=== PATIENT | female | born 2000 | race Caucasian/White ===

== ENCOUNTER 2019-04-14 17:28 | Emergency (ER) | payer BC ==
[2019-04-14 17:41] VITALS: BP 127/96
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
[2019-04-14] MEDS ORDERED: valACYclovir 500 MG TAB PO ONE (19:17)
[2019-04-14] MEDS ORDERED: AZITHROMYCIN 250 MG TAB PO ONE (19:40)
== END 2019-04-14 22:30 | disposition home or self-care (01) ==
LOC: EEVIPCON 17:28
DX: T76.21XA Adult sexual abuse, suspected, initial encounter (principal); S60.512A Abrasion of left hand, initial encounter; B00.1 Herpesviral vesicular dermatitis; Y92.009 Unspecified place in unspecified non-institutional (private) residence as the place of occurrence of the external cause
CPT/HCPCS: J0696